=== PATIENT | female | born 1930 | race Caucasian/White ===

== ENCOUNTER 2016-07-21 12:54 | Outpatient (CLI) | payer MEDICARE, OTHER ==
[~2016-07-21] VITALS: Ht 154.9 cm; Wt 46.8 kg
[~2016-07-21 12:54] MED LIST: BENICAR20 MG PO; CATAPRES0.1 MG PO; COZAAR50 MG PO; HYDROCODON-ACE1 EAC7 PO; NORVASC5 MG PO; ROBAXIN-750750 MG PO; ROBAXIN500 MG PO; SYNTHROID112 MCG PO; VALIUM5 MG PO; VESICARE10 MG PO; ZANAFLEX4 MG PO
[2016-07-21 13:27] VITALS: BP 121/66; Ht 154.9 cm; Wt 46.8 kg
== END 2016-07-21 13:45 | disposition home or self-care (01) ==
LOC: D.OPS 12:54
DX: M81.0 Age-related osteoporosis without current pathological fracture (principal)

== ENCOUNTER 2017-02-03 09:56 | Outpatient (CLI) | payer MEDICARE, OTHER ==
[~2017-02-03] VITALS: Ht 154.9 cm; Wt 46.8 kg
[2017-02-03 10:58] VITALS: BP 125/64; Ht 154.9 cm; Wt 46.8 kg
== END 2017-02-03 11:08 ==
LOC: D.OPS 09:56
DX: M81.0 Age-related osteoporosis without current pathological fracture (principal); Z87.310 Personal history of (healed) osteoporosis fracture

== ENCOUNTER → 2017-06-07 13:09 | Outpatient (CLI) | payer MEDICARE, OTHER ==
[2017-02-03 10:58] VITALS: BMI 19.5
== END | disposition home or self-care (01) ==
LOC: D.CT 13:09
DX: R91.1 Solitary pulmonary nodule (principal)

== ENCOUNTER 2017-08-05 13:08 | Outpatient (CLI) | payer MEDICARE, OTHER ==
[~2017-08-05] VITALS: Ht 154.9 cm; Wt 47.3 kg
[2017-08-05 13:32] VITALS: BP 118/67; Ht 154.9 cm; Wt 47.3 kg
== END 2017-08-05 13:55 | disposition home or self-care (01) ==
LOC: D.OPS 13:08
DX: M81.0 Age-related osteoporosis without current pathological fracture (principal)

== ENCOUNTER → 2018-05-12 08:49 | Outpatient (CLI) | payer MEDICARE, OTHER ==
[2017-08-05 13:32] VITALS: BMI 19.7
--- NOTE | ~2018-05-12 | HEMODYNAMI ---
PATIENT:MADI RIZO MEDICAL RECORD: [id number] : 28 [id number] ADMISSION DATE: 05/12/18 Generatedon:05/12/201811:07 Patient name: MADI RIZO Patient #: [id number] SSN: : [id number] Date of study: 05/12/2018 Page: Of Hemodynamic Procedure Report Patient Data Patient Demographics Procedure consent was obtained First Name: MADI Gender: Female Last Name: SALLIE : 1930 [facility] Initial: J Age: 87 year(s) Patient #: [id number] Race: Unknown Additional ID: [id number] Contact details Address: [address] [place] [address] State: [place] City: [facility] Zip code: [address] Past Medical History Allergies: No known allergies Admission Admission Data Admission Date: 05/12/2018 Admission Time: 8:49 Procedure Procedure Types Cath Procedure Peripheral Cath Diagnostic Procedure Miscellaneous Epidural Steroid Injection Procedure Description Procedure Date Procedure Date: 05/12/2018 Procedure Start Time: 10:46 Procedure Staff Name Function Khanh Ulrich MD Performing Physician Bobby Ludwig RT Monitor Jaqueline Alcazar RN Nurse Procedure Data Cath Procedure Fluoroscopy Diagnostic fluoroscopy Total fluoroscopy Time: 0.4 time: 0.4 min min Diagnostic fluoroscopy Total fluoroscopy dose: 5 dose: 5 mGy mGy Hemodynamics Rest Pre Cath Intra NCS Post Cath Procedure Log Time Note 10:13:18 Bobby Ludwig RT (R) (CV) sent for patient. Start room use. 10:13:28 Time tracking: Regular hours (M-F 7:00 - 5:00) 10:13:33 Patient received from Outpatients to IR Alert and oriented. Tansferred to table in Supine position. 10:13:36 Correct patient and procedure confirmed by team. 10:13:38 Signed procedure consent form obtained from patient. 10:13:39 Full Disclosure recording started 10:13:40 - 10:13:42 Pre-procedure instructions explained to patient. 10:13:43 Pre-op teaching completed and patient verbalized understanding. 10:13:50 Patient allergic to No known allergies 10:15:06 Lumbar area was prepped with betadine and draped in sterile fashion 10:45:48 Physician arrived 10:45:49 --------ALL STOP TIME OUT------ 10:45:54 Final Timeout: patient, procedure, and site verified with staff and physician. All members of the team are in agreement. 10:46:02 Lumbar site verified by team. 10:46:08 Sedation plan: Local Anesthetic Medication:Lidocaine 10:46:20 Procedure started. 10:46:26 Local anesthetic to Lumbar area with Lidocaine 1% by Khanh Ulrich MD.INITIAL ACCESS ONLY 10:46:40 KIT EPIDURAL CATHETERIZATION opened to sterile field. 11:05:47 Procedure ended.(Physican Out) 11:06:04 Fluoroscopy time 00.40 minutes. 11:06:09 Fluoroscopy dose: 5 mGy 11:06:09 Flurop Dose total: 5 11:06:52 banaide applied to lumbar area site stable pt sent to waiting room ror 15 min and then sent home Device Usage Item Name Manufacture Quantity Catalog Hospital Part Current [facility] l Lot# / Number Charge Number Stock Stock Serial# Code KIT EPIDURAL Teleflex 1 [id number] CATHETERIZATION Signature Audit [place] Stage Time Signature Unsigned Intra-Procedure 05/12/2018 Bobby 11:07:33 AM Vani RT (R) (CV) Signatures Monitor : Bobby Signature : Vani RT Date : Time : [facility] [address] [place] [address]
== END | disposition home or self-care (01) ==
LOC: D.RAD 08:49
PROVIDERS: ATTEND Specialist
DX: M54.5 Low back pain (principal); M51.36 Other intervertebral disc degeneration, lumbar region

== ENCOUNTER → 2018-06-22 09:54 | Outpatient (CLI) | payer MEDICARE, OTHER ==
--- NOTE | ~2018-06-22 | HEMODYNAMI ---
PATIENT:MADI RIZO MEDICAL RECORD: [id number] : 28 LOCATION:[facility] ADMISSION DATE: 06/22/18 Generatedon:06/22/201811:23 Patient name: MADI RIZO Patient #: [id number] SSN: : 1930 Date of study: 06/22/2018 Page: Of Hemodynamic Procedure Report Patient Data Patient Demographics Procedure consent was obtained First Name: MADI Gender: Female Last Name: SALLIE : 1930 [facility] Initial: J Age: 87 year(s) Patient #: [id number] Race: Unknown Additional ID: [id number] Contact details Address: [address] [place] [address] State: [place] City: [facility] Zip code: [address] Past Medical History Allergies: No known allergies Admission Admission Data Admission Date: 06/22/2018 Admission Time: 9:54 Procedure Procedure Types Cath Procedure Peripheral Cath Diagnostic Procedure Miscellaneous Epidural Steroid Injection Procedure Description Procedure Date Procedure Date: 06/22/2018 Procedure Start Time: 10:37 Procedure Staff Name Function Bobby Ludwig RT Monitor Khanh Ulrich MD Performing Physician Jaqueline Alcazar RN Nurse Skye Roman RN Nurse Procedure Data Cath Procedure Fluoroscopy Diagnostic fluoroscopy Total fluoroscopy Time: 0.5 time: 0.5 min min Diagnostic fluoroscopy Total fluoroscopy dose: 15 dose: 15 mGy mGy Hemodynamics Rest Pre Cath Intra NCS Post Cath Procedure Log Time Note 10:26:55 Bobby Ludwig RT (R) (CV) sent for patient. Start room use. 10:27:08 Patient received from Outpatients to IR Alert and oriented. Tansferred to table in Prone position. 10:27:09 Correct patient and procedure confirmed by team. 10:27:12 Signed procedure consent form obtained from patient. 10:27:13 Full Disclosure recording started 10:27:14 Pre-procedure instructions explained to patient. 10:27:14 - 10:27:15 Pre-op teaching completed and patient verbalized understanding. 10:27:18 Family in waiting room. 10:27:25 Patient allergic to No known allergies 10:27:30 Is patient on blood thinner?No 10:27:40 Lumbar area was prepped with betadine and draped in sterile fashion 10:36:18 Physician arrived 10:36:19 --------ALL STOP TIME OUT------ 10:36:20 Final Timeout: patient, procedure, and site verified with staff and physician. All members of the team are in agreement. 10:36:24 Lumbar site verified by team. 10:36:29 Sedation plan: Local Anesthetic Medication:Lidocaine 10:37:11 Procedure started. 10:37:20 Local anesthetic to Lumbar area with Lidocaine 1% by Khanh Ulrich MD.INITIAL ACCESS ONLY 10:37:33 KIT EPIDURAL CATHETERIZATION opened to sterile field. 10:37:34 SPINAL NEEDLE 22G X 3.5 IN ([id number]) opened to sterile field. 10:55:54 Procedure ended.(Physican Out) 10:56:40 BANDAIDE APPLIED SITE STABE PT SENT HOME 10:57:08 Full Disclosure recording stopped 11:23:03 Fluoroscopy time 00.50 minutes. 11:23:07 Fluoroscopy dose: 15 mGy 11:23:07 Flurop Dose total: 15 Device Usage Item Name Manufacture Quantity Catalog [facility] Part [facility] Lot# / Number Charge Number Stock Stock Serial# Code KIT EPIDURAL Teleflex 1 [id number] 5 CATHETERIZATION SPINAL NEEDLE Unknown 1 [id number] 1 22G X 3.5 IN ([id number]) Signature Audit [place] Stage Time Signature Unsigned Intra-Procedure 06/22/2018 Bobby Ludwig RT 10:56:57 AM Vani RT (R) (CV) 06/22/2018 (R) (CV) 11:22:48 AM Intra-Procedure 06/22/2018 Bobby 11:23:37 AM Vani RT (R) (CV) Signatures Monitor : Bobby Signature : [place] RT Date : Time : [address] [place] [address]
== END | disposition home or self-care (01) ==
LOC: D.SP 09:54
DX: M54.5 Low back pain (principal); Z01.812 Encounter for preprocedural laboratory examination